=== PATIENT | male | born 1995 | race Two or more races ===

== ENCOUNTER 2024-04-21 16:59 | Emergency (ER) | payer OTHER ==
[~2024-04-21] VITALS: Ht 175.3 cm; Wt 75.2 kg
[2024-04-21 17:16] VITALS: PULSE 116; RESP 20; O2SAT 98
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
[2024-04-21 18:25] LABS: Basophils # (auto) 0 10 ^3/uL (0-0.2); Basophils % (auto) 0.2 % (0.0-2.0); Eosinophils # (auto) 0 10 ^3/uL (0-0.8); Hematocrit 51.1 % (41.0-53.0); Hemoglobin 16.6 g/dL (13.5-17.5); Lymphocytes # (auto) 0.7 10 ^3/uL (0.4-5.4); Lymphocytes % (auto) 3.6 % (10.0-50.0); Mean Corpuscular Hemoglobin 30.8 pg (28.0-32.0); Mean Corpuscular Hgb Conc. 32.4 g/dL (32.0-36.0); Monocytes # (auto) 1.3 10 ^3/uL (0-1.3); Neutrophils # (auto) 16.9 10 ^3/uL (1.6-8.6); Neutrophils % (auto) 89.2 % (37.0-80.0); Nucleated Red Blood Cells % 0.3 %; Platelet Count (auto) 187 10^3/uL (140-450); Red Blood Cells 5.38 10^6/uL (4.5-5.90); Red Cell Distribution Width 14.1 % (11.8-14.3); White Blood Cell 18.9 10^3/uL (4.4-10.8)
[2024-04-21] MEDS: SODIUM CHLORIDE 0.9% 1,000 ML IV ONE (18:27)
[2024-04-21] MEDS: ceFAZolin 1GM/50ML 50 ML IV ONE (18:27)
[2024-04-21] MEDS: TETANUS-DIPTH-ACEL PERTUSSIS 0.5ML SYR Tdap IM ONE (18:29)
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
[2024-04-21 18:34] LABS: Alkaline Phosphatase 78 U/L (46-116); Carbon Dioxide 21 mmol/L (20-31)
[2024-04-21 18:35] LABS: Anion Gap 13 (5-15); BUN/Creatinine Ratio 11.3 (10.0-20.0); Bilirubin, Total 0.8 mg/dL (0.2-1.0); Blood Urea Nitrogen 12 mg/dL (9-23); Glucose 90 mg/dL (74-106); Magnesium 1.8 mg/dL (1.6-2.6); Potassium 4.3 mmol/L (3.5-5.1); Sodium 141 mmol/L (136-145); Total Protein 7.1 g/dL (5.7-8.2)
[2024-04-21 18:39] LABS: Alanine Aminotransferase 226 U/L (7-40); Albumin 5.3 g/dL (3.2-4.8); Aspartate Aminotransferase 146 U/L (13-40); Calcium 10.4 mg/dL (8.7-10.4); Chloride 107 mmol/L (98-107); Creatine Kinase IFCC 375 U/L (46-171)
[2024-04-21 18:50] LABS: Lipase 186 U/L (12-53)
--- NOTE | 2024-04-21 19:06 | ECG ---
[facility] Test Date: 2024-04-21 Test Time: 18:30:50 Pat Name: RUPERT SHIN Department: ER Room: Gender: M Financial Representative: : 1995 Requested By: MILY KNIGHT Order Number: [id number] Reading MD: Wayne Oneal Measurements Intervals [place] Rate: 111 P: 37 CO: 157 QRS: 43 QRSD: 85 T: 27 QT: 312 QTc: 424 Interpretive Statements Sinus tachycardia Borderline ST elevation, anterior leads Electronically Signed On 04-22-2024 9:08:28 PST by Wayne Oneal Please click the below link to view image of tracing.
[2024-04-21 19:38] LABS: Urine Bacteria None Seen /hpf (None Seen)
[2024-04-21 19:50] LABS: Urine Blood 3+ /uL (Negative); Urine Clarity Clear (Clear); Urine Color Yellow (Yellow); Urine Mucus FEW (None Seen); Urine Protein, UAD 1+ (Negative); Urine Specific Gravity 1.032 (1.001-1.035); Urine Squamous Epithelial Cell FEW /hpf (<5); Urine Urobilinogen Normal (Negative); Urine WBC 3 /HPF (0-3); Urine pH 5.5 (5.0-9.0)
[2024-04-21] MEDS: IOHEXOL 300 MG/ML 100ML BOTTLE IJ ONE (20:12)
[2024-04-21 20:25] VITALS: PULSE 107; RESP 21; O2SAT 99
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
[2024-04-21 20:50] LABS: Amphetamine Screen, Urine Neg (NEGATIVE); Barbiturate Scree,Urine Neg (NEGATIVE); Benzodiazephine Screen, Urine Neg (NEGATIVE); Cannabinoid Screen, Urine Neg (NEGATIVE); Cocaine Screen, Urine Neg (NEGATIVE); Opiate Scree,Urine Neg (NEGATIVE); Phencyclidine Screen, Urine Neg (NEGATIVE)
[2024-04-21 20:52] LABS: Albumin 4.6 g/dL (3.2-4.8); Alkaline Phosphatase 65 U/L (46-116); Anion Gap 10 (5-15); BUN/Creatinine Ratio 9.8 (10.0-20.0); Bilirubin, Total 0.8 mg/dL (0.2-1.0); Calcium 9.3 mg/dL (8.7-10.4); Glucose 91 mg/dL (74-106); Sodium 139 mmol/L (136-145)
[2024-04-21 20:53] LABS: Total Protein 6.2 g/dL (5.7-8.2)
[2024-04-21 20:59] LABS: Alanine Aminotransferase 179 U/L (7-40); Aspartate Aminotransferase 108 U/L (13-40); Blood Urea Nitrogen 9 mg/dL (9-23); Carbon Dioxide 20 mmol/L (20-31); Chloride 109 mmol/L (98-107)
[2024-04-21 21:11] LABS: Basophils # (auto) 0 10 ^3/uL (0-0.2); Basophils % (auto) 0.3 % (0.0-2.0); Eosinophils # (auto) 0 10 ^3/uL (0-0.8); Hemoglobin 14.7 g/dL (13.5-17.5); Lymphocytes # (auto) 0.7 10 ^3/uL (0.4-5.4); Lymphocytes % (auto) 4.5 % (10.0-50.0); Mean Corpuscular Hemoglobin 30.9 pg (28.0-32.0); Mean Corpuscular Hgb Conc. 33.5 g/dL (32.0-36.0); Mean Corpuscular Volume 92.2 fL (80.0-100.0); Monocytes # (auto) 1.1 10 ^3/uL (0-1.3); Monocytes % (auto) 7.3 % (0.0-12.0); Neutrophils # (auto) 13.3 10 ^3/uL (1.6-8.6); Neutrophils % (auto) 87.9 % (37.0-80.0); Nucleated Red Blood Cells % 0.2 %; Platelet Count (auto) 168 10^3/uL (140-450); Red Blood Cells 4.77 10^6/uL (4.5-5.90); White Blood Cell 15.1 10^3/uL (4.4-10.8)
[2024-04-21 22:39] VITALS: BP 126/80; PULSE 109; RESP 22; TEMP 98; O2SAT 96
== END 2024-04-21 22:36 | disposition short-term general hospital (02) ==
LOC: ER 17:06
DX: S30.811A Abrasion of abdominal wall, initial encounter (principal); S36.09XA Other injury of spleen, initial encounter; R74.8 Abnormal levels of other serum enzymes; R51.9 Headache, unspecified; Z79.899 Other long term (current) drug therapy; V89.2XXA Person injured in unspecified motor-vehicle accident, traffic, initial encounter; Y93.55 Activity, bike riding; Y92.488 Other paved roadways as the place of occurrence of the external cause; Y99.8 Other external cause status
CPT/HCPCS: 36415; 70450; 71250; 72125; 74176; 74177; 80053; 80307; 81001; 82550; 83605; 83690; 83735; 84484; 85025; 86850; 86900; 86901; 90471; 90715; 93005; 96365; 99285; J0690; J7030; Q9967